=== PATIENT | female | born 1950 | race Two or more races ===

== ENCOUNTER 2021-05-05 11:15 | Outpatient (CLI) | payer OTHER ==
[~2021-05-05 11:15] MED LIST: BYSTOLIC10 MG; DIOVAN320 MG
== END 2021-05-05 11:28 | disposition home or self-care (01) ==
LOC: RAD 11:15
DX: M99.01 Segmental and somatic dysfunction of cervical region (principal); M99.02 Segmental and somatic dysfunction of thoracic region; M99.03 Segmental and somatic dysfunction of lumbar region; M99.04 Segmental and somatic dysfunction of sacral region

== ENCOUNTER 2022-12-14 10:47 | Outpatient (CLI) | payer OTHER | END 2022-12-14 10:55 | disposition home or self-care (01) | LOC: RAD 10:47 | PROVIDERS: ATTEND Orthopaedic Surgery Adult Reconstructive Orthopaedic Surgery | DX: Z96.652 Presence of left artificial knee joint (principal) ==